=== PATIENT | female | born 1965 | race Caucasian/White ===

== ENCOUNTER 2019-04-02 12:45 | Inpatient (IN) | payer BC, OTHER ==
[~2019-04-02] VITALS: Ht 157.5 cm; Wt 68.0 kg
--- NOTE | 2019-04-02 13:06 | NUR ---
ZABRINA RA 88 From Home "Anxiety" Hyperventilating. NOT answering questions BS 119, TO ER BED 14, HOOKED TO MONITOR, CHANGED TO HOSP GOWN, PROVIDED W WARM BLANKET, AWAITING MD KUMAR.
--- NOTE | 2019-04-02 13:18 | NUR ---
DAVID HERNANDEZ AT BEDSIDE
[2019-04-02] MEDS ORDERED: ACETAMINOPHEN 325 MG TABLET PO ONE (13:30)
[2019-04-02 13:38] LABS: BASOPHILS % (AUTO) 0.5 % (0.0-2.0); EOSINOPHILS % (AUTO) 1.1 % (0.0-6.0); HEMATOCRIT 26 % (33-45); HEMOGLOBIN 8.7 g/dL (11.5-14.8); LYMPHOCYTES # (AUTO) 1.4 /CMM (0.8-4.8); LYMPHOCYTES % (AUTO) 16.3 % (20.0-44.0); MEAN CORPUSCULAR HGB CONC 33 g/dl (31.0-36.0); MEAN CORPUSCULAR VOLUME 105 fL (82-100); MONOCYTES # (AUTO) 0.4 /CMM (0.1-1.30); MONOCYTES % (AUTO) 4.1 % (2.0-12.0); NEUTROPHILS # (AUTO) 6.9 /CMM (1.8-8.9); PLATELET COUNT (AUTO) 137 /CMM (150-450); RED BLOOD CELL COUNT(AUTO) 2.48 MIL/uL (4.0-5.2); WHITE BLOOD COUNT (AUTO) 8.8 K/uL (4.3-11.0)
[2019-04-02] MEDS ORDERED: ACETAMINOPHEN ES 500 MG TABLET ONE (13:40)
[2019-04-02 13:45] LABS: CARBON DIOXIDE 25 mmol/L (21-32); CHLORIDE 108 mmol/L (98-107); CREATININE 2.1 mg/dL (0.6-1.3); GLUCOSE 160 mg/dL (74-106); POTASSIUM 5.5 mmol/L (3.5-5.1); SODIUM SERUM 141 mmol/L (136-145); UREA NITROGEN, BLOOD 56 mg/dL (7-18)
[2019-04-02 13:55] LABS: ALANINE AMINOTRANSFERASE 39 U/L (12-78); ALBUMIN 2.1 g/dL (3.4-5.0); ALKALINE PHOSPHATASE 97 U/L (46-116); ASPARTATE AMINOTRANSFERASE 65 U/L (15-37); BILIRUBIN,DIRECT 0.1 mg/dL (0.0-0.2); BILIRUBIN,TOTAL 0.4 mg/dL (0.2-1.0); TOTAL PROTEIN, SERUM 6.9 g/dL (6.4-8.2)
[2019-04-02] MEDS ORDERED: IV NS 0.9% 1,000 ML BAG IV ONE (15:00)
[2019-04-02 15:21] LABS: CALCIUM, SERUM 9.1 mg/dL (8.5-10.1); POTASSIUM 5.5 mmol/L (3.5-5.1)
--- NOTE | 2019-04-02 15:41 | NUR ---
CALLED NURSING SUP FOR TELE BED.
--- NOTE | 2019-04-02 15:41 | NUR ---
CALLED [facility]ER WIL[facility].
[2019-04-02 15:57] LABS: APPEARANCE,URINE HAZY (CLEAR); BILIRUBIN,URINE Negative (NEGATIVE); BLOOD, URINE Small Ery/uL (NEGATIVE); COLOR,URINE Yellow (YELLOW); KETONES,URINE Negative (NEGATIVE); LEUKOCYTE ESTERASE ,URINE Negative (NEGATIVE); NITRITE, URINE Negative (NEGATIVE); PH,URINE 6.5 (5.0-8.0); PROTEIN,URINE 100 mg/dl (NEGATIVE); UGLUCOSE Negative (NEGATIVE); UROBILINOGEN,URINE 0.2 EU/dL (0.2)
--- NOTE | 2019-04-02 15:59 | NUR ---
URINE SAMPLE SENT TO LAB
[2019-04-02 16:02] LABS: BACTERIA,URINE Few /HPF (None Seen); SQUAMOUS EPITHELIAL CELL,UR Moderate /HPF (None Seen); WBC,URINE 0-2 /HPF (0-3)
[2019-04-02] MEDS ORDERED: SODIUM POLYSTYRENE SULFONATE 15 G/60 ML BOTTLE PO ONE (16:30)
--- NOTE | 2019-04-02 16:33 | NUR ---
NURSING SUP GAVE TELE BED [phone].
[2019-04-02] MEDS ORDERED: DEXTROSE 50%-WATER 50 ML DISP.SYRIN IV PRN (17:00)
[2019-04-02] MEDS ORDERED: ONDANSETRON HCL/PF 4 MG/2 ML VIAL IVP PRN (17:00)
[2019-04-02] MEDS ORDERED: DOCUSATE SODIUM 100 MG CAPSULE PO PRN (17:00)
[2019-04-02] MEDS ORDERED: MORPHINE SULFATE INJ 2 MG/ML DISP.SYRIN IV PRN (17:00)
[2019-04-02] MEDS ORDERED: NITROGLYCERIN 0.4 MG/TAB BOTTLE SL PRN (17:00)
[2019-04-02] MEDS ORDERED: LORAZEPAM 1 MG TABLET PO PRN (17:00)
[2019-04-02] MEDS ORDERED: MAG HYDROX/AL HYDROX/SIMETH 30 ML UDC PO PRN (17:00)
[2019-04-02] MEDS ORDERED: SODIUM POLYSTYRENE SULFONATE 15 G/60 ML BOTTLE ONE (17:02)
--- NOTE | 2019-04-02 17:03 | NUR ---
REPORT GIVEN TO TAMAR MEAD. PT AWAITING TRANSFER TO FLOOR.
--- NOTE | 2019-04-02 17:30 | NUR ---
FREIGHT BREAKER AM ADMITTING NOTES ADMITTED PT FROM ER WITH DX OF CHEST PAIN.CARRIE AND HYPERKALEMIA.PT IS ALERT AND ORIENTED X3.VERBALLY RESPONSIVE-HUNGARIAN SPEAKING.WITH BLE WEAKNESS.SKIN INTACT.ACLS STROKE TEACHING GIVEN AND ASSESSMENT DONE.DENIES ANY DISTRESS JUST C/O MILD ABDOMINAL PAIN DENYING NAUSEA ,VOMITING.ORIENTED TO HER ROOM AND USE OF CALL LIGHT.FAMILY AT BEDSIDE.CALL LIGHT PLACED WITHIN REACH.
[2019-04-02 17:35] VITALS: BP 135/71
[2019-04-02] MEDS: INSULIN REGULAR, HUMAN 100 UNIT/ML 3 ML VIAL SQ PRN (18:37)
[2019-04-02] MEDS: BLOOD SUGAR DIAGNOSTIC 1 EACH STRIP IN SCH ×2 (18:38→23:43)
--- NOTE | 2019-04-02 19:00 | NUR ---
TELE/RN OPENING NOTES: PT IS AWAKE IN BED, VERBALLY RESPONSIVE AND ABLE TO MAKE NEEDS KNOWN. AZERI SPEAKING. ALERT AND ORIENTED X3. DAUGHTER AT BEDSIDE. WITH BLE WEAKNESS. SKIN INTACT. NO SOB NOTED. NO S/S OF ACUTE DISTRESS. DENIES ANY PAIN OR DISCOMFORT AT THIS TIME. ON TELE MONITORING WITH READING OF SR, HR OF 86. CALL LIGHT PLACED WITHIN REACH. SAFETY MEASURES ARE IN PLACE. BED IN LOW, LOCKED POSITION WITH SR UP X2. WILL CONTINUE MONITORING PT. ACCORDINGLY.
[2019-04-02] MEDS: IV NS 0.9% 1,000 ML IV SCH (19:46)
[2019-04-02 20:00] VITALS: BP 133/76
[2019-04-02] MEDS ORDERED: SIMVASTATIN 20 MG TABLET PO SCH (22:00)
[2019-04-02 22:55] VITALS: BP 133/76
--- NOTE | 2019-04-02 23:30 | NUR ---
TELE/RN NOTES: PATIENT ACCUCHECK OF 112. NO INSULIN ADMINISTERED BASED ON SLIDING SCALE. PATIENT IS STABLE.
[2019-04-03] VITALS: BP 130/65
[2019-04-03 04:33] VITALS: BP 130/62
[2019-04-03] MEDS: INSULIN REGULAR, HUMAN 100 UNIT/ML 3 ML VIAL SQ PRN ×2 (06:33→17:34)
[2019-04-03] MEDS: BLOOD SUGAR DIAGNOSTIC 1 EACH STRIP IN SCH ×4 (06:33→22:44)
[2019-04-03] MEDS: IV NS 0.9% 1,000 ML IV SCH ×2 (06:38→21:58)
--- NOTE | 2019-04-03 06:39 | NUR ---
TELE/RN CLOSING NOTES: PT IS RESTING IN BED, DAUGHTER AT BEDSIDE. REMAINS VERBALLY RESPONSIVE AND ABLE TO MAKE NEEDS KNOWN. IRISH SPEAKING. ALERT AND ORIENTED X3. NO SIGNIFICANT CHANGES IN CONDITION. NO SOB NOTED. NO S/S OF ACUTE DISTRESS. DENIES ANY PAIN OR DISCOMFORT AT THIS TIME. ON TELE MONITORING WITH READING OF SR HR OF 70'S. ALL DUE MEDICATIONS GIVEN ORDERED, ALL NEEDS MET AND PROVIDED AT THIS TIME. KEPT WARM AND COMFORTABLE THROUGHOUT THE SHIFT. SAFETY MEASURES KEPT IN PLACE, BED IN LOW AND LOCKED POSITION WITH SIDE RAILS UP X2. CALL LIGHT WITH IN EASY REACH. WILL ENDORSE TO DAY SHIFT NURSE FOR YOGESH.
[2019-04-03 07:26] LABS: BASOPHILS % (AUTO) 0.6 % (0.0-2.0); HEMATOCRIT 22 % (33-45); HEMOGLOBIN 7.4 g/dL (11.5-14.8); LYMPHOCYTES # (AUTO) 1.9 /CMM (0.8-4.8); LYMPHOCYTES % (AUTO) 24.5 % (20.0-44.0); MEAN CORPUSCULAR HGB CONC 34 g/dl (31.0-36.0); MEAN CORPUSCULAR VOLUME 104 fL (82-100); MONOCYTES # (AUTO) 0.3 /CMM (0.1-1.30); MONOCYTES % (AUTO) 3.8 % (2.0-12.0); NEUTROPHILS # (AUTO) 5.4 /CMM (1.8-8.9); NEUTROPHILS % (AUTO) 70.1 % (43.0-81.0); PLATELET COUNT (AUTO) 149 /CMM (150-450); RED BLOOD CELL COUNT(AUTO) 2.14 MIL/uL (4.0-5.2); WHITE BLOOD COUNT (AUTO) 7.7 K/uL (4.3-11.0)
[2019-04-03 07:45] LABS: THYROID STIMULATING HORMONE 64.325 uIU/mL (0.358-3.74)
[2019-04-03 07:54] LABS: ALBUMIN 2.1 g/dL (3.4-5.0); BILIRUBIN,TOTAL 0.3 mg/dL (0.2-1.0); CALCIUM, SERUM 8.7 mg/dL (8.5-10.1); CREATININE 1.6 mg/dL (0.6-1.3); MAGNESIUM 1.6 mg/dL (1.8-2.4); PHOSPHORUS 4.4 mg/dL (2.5-4.9); TOTAL PROTEIN, SERUM 6.6 g/dL (6.4-8.2)
[2019-04-03 08:00] VITALS: BP 130/74
[2019-04-03] MEDS ORDERED: PANTOPRAZOLE 40 MG TABLET.DR PO SCH (09:00)
[2019-04-03] MEDS ORDERED: ASPIRIN 81 MG TAB.CHEW PO SCH (09:00)
[2019-04-03] MEDS ORDERED: ENOXAPARIN SODIUM 30 MG/0.3 ML DISP.SYRIN SQ SCH (09:00)
[2019-04-03] MEDS: SUCRALFATE 1 G/10 ML UDC GT SCH ×3 (09:43→17:34)
--- NOTE | 2019-04-03 10:00 | NUR ---
Obtained home meds from pt's daughter . Will inform hospitalist for reconciliation
--- NOTE | 2019-04-03 10:00 | NUR ---
Patient sighed consent for release med. record and sent to [facility]
[2019-04-03] MEDS ORDERED: Magnesium 1GM/D5W 100ML PREMIX 100 ML IV SCH (11:30)
[2019-04-03] MEDS: LEVOTHYROXINE SODIUM 112 MCG TABLET PO SCH (12:00)
[2019-04-03] MEDS: METOPROLOL TARTRATE 50 MG TABLET PO SCH ×2 (12:21→17:33)
[2019-04-03] MEDS ORDERED: PANT20TA2 PO (13:03)
[2019-04-03] MEDS ORDERED: CYCL5TAB PO (13:03)
[2019-04-03] MEDS ORDERED: NIFE20CA PO (13:03)
[2019-04-03] MEDS ORDERED: BACL20TA PO (13:03)
[2019-04-03] MEDS ORDERED: DULO20CA19 PO (13:03)
[2019-04-03] MEDS ORDERED: GLIP10TA11 PO (13:03)
[2019-04-03] MEDS ORDERED: GABA-534 PO (13:03)
[2019-04-03] MEDS: SOD FERRIC GLUC 125 MG in IV NS 0.9% 100 ML IV SCH (14:44)
[2019-04-03 16:00] VITALS: BP 139/70
[2019-04-03] MEDS: glipiZIDE 10 MG TABLET PO SCH (17:33)
[2019-04-03] MEDS: PANTOPRAZOLE 40 MG VIAL IV SCH (17:33)
--- NOTE | 2019-04-03 19:05 | NUR ---
PT IS RESTING IN BED, FAMILY AT BEDSIDE. CAMBODIAN SPEAKING. ALERT AND ORIENTED X3. NO SIGNIFICANT CHANGES IN CONDITION. NO SOB NOTED OR S/S OF ACUTE DISTRESS. DENIES PAIN OR DISCOMFORT AT THIS TIME. ALL NEEDS ATTENDED. SAFETY MEASURES KEPT IN PLACE, BED IN LOW AND LOCKED POSITION WITH SIDE RAILS UP X2. CALL LIGHT WITHIN REACH. POSSIBLE TRANSFER TO ANOTHER HOSPITAL PER CASE MANAGEMENT. AWAITING FOR BED.
[2019-04-03 20:00] VITALS: BP 140/77
--- NOTE | 2019-04-03 20:00 | NUR ---
MS/RN OPENING NOTES RECEIVED PATIENT IN BED. AWAKE, ALERT X3, LUX[place]OURG[place] SPEAKING BUT ABLE TO UNDERSTAND [place], FAMILY AT BEDSIDE. RESPIRATIONS EVEN AND UNLABORED, BED LOCKED, CALL LIGHTS WITHIN REACH, COOPERATIVE TO CARE, IV FLUIDS RUNNINF AT 75 ML/HR. IV SITE PATENT, TO MONITOR. FAMILY INVOLVE, FAMILY WAS MADE AWARE ABOUT PLAN TO BE TRANSFERED TO [place] AWAITING FOR BED AVAILABILITY.
[2019-04-03 20:35] VITALS: BP 105/66
[2019-04-03] MEDS ORDERED: GABAPENTIN 300 MG CAPSULE PO SCH (22:00)
[2019-04-04] MEDS: METOPROLOL TARTRATE 50 MG TABLET PO SCH ×4 (06:00→17:42)
[2019-04-04] MEDS: BLOOD SUGAR DIAGNOSTIC 1 EACH STRIP IN SCH ×3 (06:34→17:02)
--- NOTE | 2019-04-04 07:00 | NUR ---
MS RN NOTES PATIENT IN BED RESTING NO SOB OR ACUTE DISTRESS NOTED. PATIENT ALERT, ORIENTED X3. PERIPHERAL IV INTACT PATENT. WILL CONTINUE TO MONITOR.
--- NOTE | 2019-04-04 07:41 | NUR ---
MS/RN NOTES ALL NEEDS ATTENDED, ENDORSE TO AM RN FOR YOGESH.
[2019-04-04 08:00] VITALS: BP 118/68
[2019-04-04 08:05] LABS: BASOPHILS % (AUTO) 0.6 % (0.0-2.0); EOSINOPHILS % (AUTO) 1.3 % (0.0-6.0); HEMATOCRIT 22 % (33-45); HEMOGLOBIN 7.3 g/dL (11.5-14.8); LYMPHOCYTES % (AUTO) 33.1 % (20.0-44.0); MEAN CORPUSCULAR HGB CONC 33 g/dl (31.0-36.0); MEAN CORPUSCULAR VOLUME 104 fL (82-100); MONOCYTES # (AUTO) 0.4 /CMM (0.1-1.30); MONOCYTES % (AUTO) 5.9 % (2.0-12.0); NEUTROPHILS # (AUTO) 3.6 /CMM (1.8-8.9); NEUTROPHILS % (AUTO) 59.1 % (43.0-81.0); PLATELET COUNT (AUTO) 125 /CMM (150-450); RED BLOOD CELL COUNT(AUTO) 2.12 MIL/uL (4.0-5.2); WHITE BLOOD COUNT (AUTO) 6.2 K/uL (4.3-11.0)
[2019-04-04] MEDS: LEVOTHYROXINE SODIUM 112 MCG TABLET PO SCH (08:09)
[2019-04-04] MEDS: glipiZIDE 10 MG TABLET PO SCH ×2 (08:09→17:42)
[2019-04-04] MEDS: SUCRALFATE 1 G/10 ML UDC GT SCH ×3 (08:09→17:42)
[2019-04-04] MEDS: PANTOPRAZOLE 40 MG VIAL IV SCH ×2 (08:09→17:42)
[2019-04-04 08:26] LABS: CALCIUM, SERUM 7.8 mg/dL (8.5-10.1); CREATININE 1.4 mg/dL (0.6-1.3); MAGNESIUM 1.7 mg/dL (1.8-2.4); PHOSPHORUS 2.3 mg/dL (2.5-4.9); POTASSIUM 3.6 mmol/L (3.5-5.1)
[2019-04-04] MEDS ORDERED: Medication Not On Formulary EA (Pantoprazole Sodium (Protonix) 1 TAB) PO SCH (09:00)
[2019-04-04] MEDS ORDERED: DULOXETINE HCL 20 MG CAPSULE.DR PO SCH (09:00)
[2019-04-04] MEDS ORDERED: NIFEdipine XL (30MG) 30 MG TAB PO SCH (09:00)
[2019-04-04] MEDS: IV NS 0.9% 1,000 ML IV SCH (09:00)
[2019-04-04] MEDS ORDERED: K PHOS NEUTRAL 250 MG TABLET PO ONE (11:00)
[2019-04-04] MEDS: Magnesium 1GM/D5W 100ML PREMIX 100 ML IV SCH ×2 (11:10→12:20)
[2019-04-04] MEDS: INSULIN REGULAR, HUMAN 100 UNIT/ML 3 ML VIAL SQ PRN (11:27)
[2019-04-04] MEDS ORDERED: SOD FERRIC GLUC 125 MG in IV NS 0.9% 100 ML IV SCH (14:00)
[2019-04-04] MEDS: SOD FERRIC GLUC 125 MG in IV NS 0.9% 100 ML IV SCH (14:51)
[2019-04-04 16:00] VITALS: BP 120/70
[2019-04-04 17:42] VITALS: BP 120/70
--- NOTE | 2019-04-04 19:35 | NUR ---
RN NOTES RECEIVED PATIENT RESTING COMFORTABLY IN BED, NO SIGNS OF ACUTE DISTRESS, DENIES ANY PAIN OR DISCOMFORT AT THIS TIME, PATIENT'S DAUGHTER PREM AT BEDSIDE DURING ROUNDS, SAFETY MEASURES IN PLACE, SATING 95%-97% ON ROOM AIR. EXPLAINED TO PATIENT AND THE DAUGHTER REGARDING POSSIBLE TRANSFER TONIGHT DUE TO INSURANCE COVERAGE. PATIENT AND PATIENTS' DAUGHTER VERBALIZES UNDERSTANDING, ALL NEEDS ATTENDED, WILL CONTINUE TO MONITOR ACCORDINGLY.
--- NOTE | 2019-04-04 19:36 | NUR ---
MS RN NOTES PATIENT IN BED RESTING NO SOB OR ACUTE DISTRESS NOTED. ALL DUE MEDICATIONS ADMINISTERED. ALL NEEDS MET. NO ACUTE CHANGES NOTED. ENDORSED CARE TO PM SHIFT.
--- NOTE | 2019-04-04 20:30 | NUR ---
RN NOTES RECEIVED A CALL FROM BRANDY OF [employer], ( PATIENT'S INSURANCE COMPANY ) THAT PATIENT WILL BE TRANFERRED TO [facility]IA [facility] AND EXPECTED TIME OF ARRIVAL HERE AT [facility] WILL BE AROUND 2114. INFORMED PATIENT REGARDING UPDATE. VERBALIZED UNDERSTANDING.
--- NOTE | 2019-04-04 20:35 | NUR ---
RN NOTES CALLED AND SPOKE TO BOSTON ELY ( [facility] [phone] ) REPORT GIVEN, ALL NEEDS ATTENDED.
--- NOTE | 2019-04-04 21:20 | NUR ---
RN NOTES [facility] CAME TO [facility] SPECIALIST PATIENT.
--- NOTE | 2019-04-04 21:53 | NUR ---
RN NOTES ALL NEEDS ATTENDED AND MET, ALL BELONGINGS ACCOUNTED FOR AND SIGNED, PATIENT IS CLEARED TO TRANSFER TO ANOTHER HOSPITAL ( [facility] ) PER MD AND ASSESSMENT, AND DUE TO INSURANCE COVERAGE. HEALTH TEACHINGS GIVEN, INSTRUCTIONS PROVIDED, REPORT GIVEN TO EMT ELIA OF [facility]. PATIENT LEFT THE UNIT AT 2150. CHARGE NURSE AWARE OF THE DISCHARGE.
== END 2019-04-04 21:50 | disposition short-term general hospital (02) | DRG 383 ==
LOC: ER 12:46 → TELE 16:44 → MED 04-03 09:26
PROVIDERS: ADMIT Registered Nurse; ATTEND Registered Nurse
DX: K27.9 Peptic ulcer, site unspecified, unspecified as acute or chronic, without hemorrhage or perforation (principal); N17.0 Acute kidney failure with tubular necrosis; E44.0 Moderate protein-calorie malnutrition; I12.9 Hypertensive chronic kidney disease with stage 1 through stage 4 chronic kidney disease, or unspecified chronic kidney disease; N18.9 Chronic kidney disease, unspecified; E03.9 Hypothyroidism, unspecified; E66.9 Obesity, unspecified; F41.9 Anxiety disorder, unspecified; K74.60 Unspecified cirrhosis of liver; E86.0 Dehydration; E88.09 Other disorders of plasma-protein metabolism, not elsewhere classified; E11.22 Type 2 diabetes mellitus with diabetic chronic kidney disease; D64.9 Anemia, unspecified; Z68.27 Body mass index [BMI] 27.0-27.9, adult; A08.4 Viral intestinal infection, unspecified; E87.5 Hyperkalemia
CPT/HCPCS: 36415; 71045-TC; 76700-TC; 76770-TC; 80048-TC; 80053-TC; 80061-TC; 80076-TC; 81000-TC; 82962-TC; 83540-TC; 83735-TC; 84100-TC; 84443-TC; 84484-TC; 85025-TC; 85610-TC; 87081-TC; 93307-TC; C9113; G0378; J1815; J2916; J3475; J7030